=== PATIENT | female | born 1990 | race Hispanic/Latino ===

== ENCOUNTER 2021-07-17 08:58 | Emergency (ER) | payer BC, MEDICAID ==
[~2021-07-17] VITALS: Ht 167.6 cm; Wt 56.7 kg
[~2021-07-17 08:58] MED LIST: DOCU-116 PO; IBUP-2077 PO; PREN-196 PO; [UNRECOGNIZED DRUG - CODE] RC
[2021-07-17 09:26] LABS: APPEARANCE,URINE Clear (CLEAR); BILIRUBIN,URINE Negative (NEGATIVE); COLOR,URINE Yellow (YELLOW); GLUCOSE, URINE (UA) Negative (NEGATIVE); KETONES,URINE Negative (NEGATIVE); LEUKOCYTE ESTERASE ,URINE Negative (NEGATIVE); NITRATE,URINE Negative (NEGATIVE); OCCULT BLOOD,URINE Negative (NEGATIVE); PROTEIN,URINE Negative (NEGATIVE)
[2021-07-17 09:28] LABS: HCG,QUAL RESULT POSITIVE (NEGATIVE)
[2021-07-17 09:30] LABS: BASOPHILS % (AUTO) 0.6 % (0.0-5.0); EOSINOPHILS % (AUTO) 0.9 % (0.0-8.0); LYMPHOCYTES % (AUTO) 22.4 % (21.0-51.0); MEAN CORPUSCULAR HEMOGLOBIN 29.3 pg (27.0-33.0); MEAN CORPUSCULAR HGB CONC 33.6 g/dL (32.0-36.0); MEAN CORPUSCULAR VOLUME 87.1 fL (79-99); NEUTROPHILS % (AUTO) 69.8 % (40.0-77.0); PLATELET COUNT (AUTO) 240 K/uL (130-400); RED BLOOD CELL COUNT(AUTO) 3.79 MIL/uL (4.00-5.50); RED CELL DISTRIBUTION WIDTH 13.2 % (11.0-15.5); WHITE BLOOD COUNT (AUTO) 7.8 K/uL (4.8-10.8)
[2021-07-17 10:56] VITALS: BP 105/57
[2021-07-17] MEDS ORDERED: PREN1CAP35 PO (13:18)
== END 2021-07-17 13:29 | disposition home or self-care (01) ==
LOC: EDH 08:58
DX: O26.891 Other specified pregnancy related conditions, first trimester (principal); R10.2 Pelvic and perineal pain; R11.0 Nausea; Z79.899 Other long term (current) drug therapy; Z79.1 Long term (current) use of non-steroidal anti-inflammatories (NSAID); Z3A.01 Less than 8 weeks gestation of pregnancy
CPT/HCPCS: 36415; 76801; 81003; 81025; 84702; 85025

== ENCOUNTER 2022-02-13 01:51 | Inpatient (IN) | payer MEDICAID ==
[~2022-02-13] VITALS: Ht 167.6 cm; Wt 82.1 kg
[~2022-02-13 01:51] MED LIST changes: +PREN1CAP35 PO
[2022-02-13 02:52] LABS: APPEARANCE,URINE Clear (CLEAR); BILIRUBIN,URINE Negative (NEGATIVE); COLOR,URINE Yellow (YELLOW); GLUCOSE, URINE (UA) Negative (NEGATIVE); KETONES,URINE Negative (NEGATIVE); LEUKOCYTE ESTERASE ,URINE Negative (NEGATIVE); NITRATE,URINE Negative (NEGATIVE); OCCULT BLOOD,URINE Negative (NEGATIVE); PH,URINE 6.5 (5.0-8.0); PROTEIN,URINE Trace mg/dL (NEGATIVE)
[2022-02-13] MEDS ORDERED: MAGNESIUM 4GM PREMIX 100ML 100 ML IV SCH (03:30)
[2022-02-13] MEDS ORDERED: CALCIUM GLUC 1GM/10ML VIAL IV PRN (03:30)
[2022-02-13] MEDS ORDERED: MAGNESIUM SULFATE 40GM/1000ML 1,000 ML IV PRN (03:30)
[2022-02-13] MEDS ORDERED: AMPICILLIN 2GM+NS 100ML IV ONE (03:30)
[2022-02-13] MEDS ORDERED: TERBUTALINE SULFATE VIAL 1MG/ML SQ ONE (03:40)
[2022-02-13] MEDS: CELESTONE SOLUSPAN 6 MG/ML 5ML VIAL IM SCH ×2 (03:56→14:23)
[2022-02-13] MEDS: TERBUTALINE SULFATE VIAL 1MG/ML SQ PRN ×3 (03:56→04:47)
[2022-02-13 04:09] LABS: HEMATOCRIT 31.1 % (36-48); MEAN CORPUSCULAR HEMOGLOBIN 30.8 pg (27.0-33.0); MEAN CORPUSCULAR HGB CONC 34.4 g/dL (32.0-36.0); MEAN CORPUSCULAR VOLUME 89.6 fL (79-99); RED BLOOD CELL COUNT(AUTO) 3.47 MIL/uL (4.00-5.50); RED CELL DISTRIBUTION WIDTH 13.2 % (11.0-15.5); WHITE BLOOD COUNT (AUTO) 9.2 K/uL (4.8-10.8)
[2022-02-13] MEDS ORDERED: PROMETHAZINE HCL 25 MG/ML 1ML AMPULE IM ONE (05:00)
[2022-02-13] MEDS ORDERED: MEPERIDINE-PF 50 MG/ML SYG ONE (05:00)
[2022-02-13] MEDS ORDERED: MEPERIDINE-PF 50 MG/ML SYG IVP ONE (05:00)
[2022-02-13] MEDS ORDERED: MAGNESIUM 4GM PREMIX 100ML 100 ML IV ONE (07:16)
[2022-02-13] MEDS ORDERED: OXYTOCIN-LR 20 UNITS/1000 ML 1,000 ML IV SCH (08:00)
[2022-02-13] MEDS ORDERED: AMPICILLIN 1GM VIAL IM SCH (08:00)
[2022-02-13] MEDS ORDERED: AMPICILLIN 1GM+NS 50ML 50 ML IV ONE ×3 (08:03→15:56)
[2022-02-13] MEDS: PROMETHAZINE HCL 25 MG/ML 1ML AMPULE IM PRN ×2 (08:09→16:18)
[2022-02-13] MEDS: MEPERIDINE-PF 50 MG/ML SYG IVP PRN ×2 (08:10→16:18)
[2022-02-13 09:20] LABS: RAPID PLASMA REAGIN NONREACTIVE (NONREACTIVE)
[2022-02-13] MEDS ORDERED: NALOXONE HCL 0.4 MG/1 ML ML IV PRN (16:00)
[2022-02-13] MEDS ORDERED: LACTATED RINGERS 500 ML 500 ML IV PRN (16:00)
[2022-02-13] MEDS ORDERED: ROPIVACAINE 0.2% 100ML VIAL 100 ML EP SCH (16:00)
[2022-02-13] MEDS ORDERED: EPHEDRINE SULFATE 50 MG/ML AMPULE IVP PRN (16:00)
[2022-02-13] MEDS ORDERED: LIDOCAINE HCL 1% 20 ML VIAL ONE (16:26)
[2022-02-13] MEDS ORDERED: METHYLERGONOVINE MALEATE 0.2 MG/1 ML ML ONE (16:26)
[2022-02-13] MEDS ORDERED: MEASLES/MUMPS/RUBELLA VACCINE, LIVE 0.5 ML/VIAL SQ PRN (17:30)
[2022-02-13] MEDS ORDERED: DIPH,PERTUSS(ACELL),TET VAC/PF 0.5 ML VIAL IM PRN (17:30)
[2022-02-13] MEDS ORDERED: WITCH HAZEL 1 PAD TP PRN (17:30)
[2022-02-13] MEDS ORDERED: LANOLIN 30GM OINTMENT TP PRN (17:30)
[2022-02-13] MEDS ORDERED: BENZOCAINE/LANOLIN/ALOE VERA 60 ML AEROSOL TP PRN (17:30)
[2022-02-13] MEDS ORDERED: ACETAMINOPHEN WITH CODEINE 1 TAB TAB PO PRN (17:30)
[2022-02-13] MEDS ORDERED: ACETAMINOPHEN 325 MG TAB PO PRN (17:30)
[2022-02-13] MEDS: OXYTOCIN-LR 20 UNITS/1000 ML 1,000 ML IV SCH ×2 (17:50→19:00)
[2022-02-13] MEDS: IBUPROFEN 600 MG TABLET PO PRN (17:50)
[2022-02-13] MEDS: DOCUSATE SODIUM 100 MG CAP PO SCH (21:08)
[2022-02-13 22:07] VITALS: BP 117/71
[2022-02-13 23:04] VITALS: BP 110/68
[2022-02-14] MEDS: IBUPROFEN 600 MG TABLET PO PRN ×3 (00:14→14:42)
[2022-02-14 03:40] VITALS: BP 108/49
[2022-02-14 07:02] LABS: HEMATOCRIT 28.4 % (36-48); MEAN CORPUSCULAR HEMOGLOBIN 30.8 pg (27.0-33.0); MEAN CORPUSCULAR HGB CONC 34.5 g/dL (32.0-36.0); MEAN CORPUSCULAR VOLUME 89.3 fL (79-99); RED BLOOD CELL COUNT(AUTO) 3.18 MIL/uL (4.00-5.50); RED CELL DISTRIBUTION WIDTH 13.2 % (11.0-15.5); WHITE BLOOD COUNT (AUTO) 22.4 K/uL (4.8-10.8)
[2022-02-14] MEDS: LACTATED RINGERS 1000ML 1,000 ML IV SCH ×2 (07:42)
[2022-02-14 08:15] VITALS: BP 111/64
[2022-02-14] MEDS: DOCUSATE SODIUM 100 MG CAP PO SCH ×2 (08:41→20:01)
[2022-02-14 12:00] VITALS: BP 120/75
[2022-02-14] MEDS: MEPERIDINE-PF 50 MG/ML SYG IVP PRN (14:15)
[2022-02-14 16:00] VITALS: BP 109/72
[2022-02-14 19:00] VITALS: BP 126/54
[2022-02-14 23:19] VITALS: BP 112/68
[2022-02-15 03:00] VITALS: BP 96/54
[2022-02-15] MEDS: IBUPROFEN 600 MG TABLET PO PRN ×2 (03:51→07:33)
[2022-02-15] MEDS: DOCUSATE SODIUM 100 MG CAP PO SCH (07:32)
[2022-02-15 07:33] VITALS: BP 102/69
[2022-02-15 11:45] VITALS: BP 117/65
[2022-02-15] MEDS ORDERED: IBUP-2070 PO (12:33)
== END 2022-02-15 13:10 | disposition home or self-care (01) | DRG 560 ==
LOC: EDH 01:51 → LDH 01:52 → OBSVTOIN 01:52 → EDH 01:58 → WSH 22:00
PROVIDERS: ADMIT Obstetrics & Gynecology; ATTEND Obstetrics & Gynecology
PROC: 10E0XZZ Delivery of Products of Conception, External Approach (ICD-10-PCS; principal; 2022-02-13)
DX: O60.14X0 Preterm labor third trimester with preterm delivery third trimester, not applicable or unspecified (principal); Z37.0 Single live birth; Z3A.35 35 weeks gestation of pregnancy
CPT/HCPCS: 36415; 81003; 85027; 86592; 86701; 86850; 86900; 86901; 87340; 87390; 96360; 96361; 96372; A4314; G0378; J0290; J0702; J2175; J2210; J2550; J2590; J3105; J3475

== ENCOUNTER → 2022-03-30 | Outpatient (CLI) | payer MEDICAID ==
[~2022-03-30] MED LIST changes: +CEFAZOLIN SODIUM 1 GM VIAL IVP ONE; -DOCU-116 PO; +IBUP-2070 PO; -IBUP-2077 PO; +LACTATED RINGERS 1000ML 1,000 ML IV SCH; -PREN-196 PO; -PREN1CAP35 PO; -[UNRECOGNIZED DRUG - CODE] RC
[2022-03-30 15:44] LABS: BASOPHILS % (AUTO) 0.6 % (0.0-5.0); EOSINOPHILS % (AUTO) 1.9 % (0.0-8.0); HEMATOCRIT 35.7 % (36-48); LYMPHOCYTES % (AUTO) 38.9 % (21.0-51.0); MEAN CORPUSCULAR HEMOGLOBIN 28.9 pg (27.0-33.0); MEAN CORPUSCULAR HGB CONC 33.3 g/dL (32.0-36.0); MEAN CORPUSCULAR VOLUME 86.7 fL (79-99); MONOCYTES % (AUTO) 5.2 % (3.0-13.0); NEUTROPHILS % (AUTO) 53.2 % (40.0-77.0); PLATELET COUNT (AUTO) 282 K/uL (130-400); RED BLOOD CELL COUNT(AUTO) 4.12 MIL/uL (4.00-5.50); WHITE BLOOD COUNT (AUTO) 4.6 K/uL (4.8-10.8)
== END | disposition home or self-care (01) ==
LOC: DAH 10:00 → EDSTATUS 15:00
PROVIDERS: ATTEND Obstetrics & Gynecology
DX: U07.1 COVID-19 (principal); Z30.2 Encounter for sterilization
CPT/HCPCS: 36415; 84703; 85025; 86850; 86900; 86901; 87635; A6260; C9803

== ENCOUNTER 2022-04-13 05:35 | Day surgery (SDC) | payer MEDICAID ==
[2022-04-12 15:02] LABS: BASOPHILS % (AUTO) 1.5 % (0.0-5.0); EOSINOPHILS % (AUTO) 2.8 % (0.0-8.0); HEMATOCRIT 34.4 % (36-48); MEAN CORPUSCULAR HEMOGLOBIN 28.4 pg (27.0-33.0); MEAN CORPUSCULAR HGB CONC 32.6 g/dL (32.0-36.0); MEAN CORPUSCULAR VOLUME 87.3 fL (79-99); NEUTROPHILS % (AUTO) 53.5 % (40.0-77.0); PLATELET COUNT (AUTO) 361 K/uL (130-400); RED BLOOD CELL COUNT(AUTO) 3.94 MIL/uL (4.00-5.50); RED CELL DISTRIBUTION WIDTH 13.1 % (11.0-15.5); WHITE BLOOD COUNT (AUTO) 5.4 K/uL (4.8-10.8)
[2022-04-12 16:40] VITALS: BP 110/66
[~2022-04-13] VITALS: Ht 167.6 cm; Wt 72.7 kg
[2022-04-13] VITALS (14 sets, daily range): BP systolic 95–107; BP diastolic 49–69
[2022-04-13] MEDS ORDERED: LACTATED RINGERS 1000ML 1,000 ML IV SCH (06:00)
[2022-04-13] MEDS: CEFAZOLIN SODIUM 1 GM VIAL IVP SCH ×2 (06:00→07:00)
[2022-04-13] MEDS ORDERED: MIDAZOLAM HCL 1 MG/ML 2ML VIAL ONE (06:34)
[2022-04-13] MEDS ORDERED: LIDOCAINE PF 100MG/5ML (2%) SYRINGE 5ML ONE (06:34)
[2022-04-13] MEDS ORDERED: PROPOFOL 10 MG/ML 20ML VIAL IV ONE (06:34)
[2022-04-13] MEDS ORDERED: FENTANYL CITRATE PF 50 MCG/1 ML 2ML VIAL ONE (06:35)
[2022-04-13] MEDS ORDERED: ONDANSETRON 4MG INJ ONE (06:35)
[2022-04-13] MEDS ORDERED: ROCURONIUM 10MG/1ML SYR 10 MG/ML ML ONE (06:35)
[2022-04-13] MEDS ORDERED: ACETAMINOPHEN WITH CODEINE 1 TAB TAB ONE (08:36)
== END 2022-04-13 09:45 ==
LOC: DAH 05:35
PROVIDERS: ATTEND Obstetrics & Gynecology
DX: Z30.2 Encounter for sterilization (principal); Z20.822 Contact with and (suspected) exposure to COVID-19
CPT/HCPCS: 36415; 58670; 84703; 85025; 86850; 86900; 86901; 87426; A4215 ×2; A4221; A4222; A4223; A4351; A4600; A4663; A6260; C1769; J0690; J2250; J2405; J3010; J3490 ×2; J7120; J2001; J2704